=== PATIENT | male | born 1960 | race Caucasian/White ===

== ENCOUNTER 2017-08-19 22:46 | Emergency (ER) | payer OTHER ==
[~2017-08-19] VITALS: Ht 190.5 cm; Wt 72.7 kg
[~2017-08-19 22:46] MED LIST: ASPI325T5 PO; NO HOME MEDS; PERCOCET PO; VITA500046 PO
[2017-08-19 22:56] VITALS: BP 149/84
== END 2017-08-20 00:42 | disposition left against medical advice (07) ==
LOC: M ED 22:46 → EDBD 22:46 → M ED 08-20 00:42
DX: F10.129 Alcohol abuse with intoxication, unspecified (principal); Z53.21 Procedure and treatment not carried out due to patient leaving prior to being seen by health care provider

== ENCOUNTER 2017-12-14 11:35 | Emergency (ER) | payer OTHER ==
[2017-12-14] MEDS: NORCO, ANEXSIA 5/325MG TABLET (HYDROcodone/ACETAMINOPHEN) PO (12:46)
== END 2017-12-14 13:26 | disposition home or self-care (01) ==
LOC: M ED 11:35
DX: S86.111A Strain of other muscle(s) and tendon(s) of posterior muscle group at lower leg level, right leg, initial encounter (principal); S93.401A Sprain of unspecified ligament of right ankle, initial encounter; W17.2XXA Fall into hole, initial encounter; Y92.009 Unspecified place in unspecified non-institutional (private) residence as the place of occurrence of the external cause; E11.9 Type 2 diabetes mellitus without complications; Z98.890 Other specified postprocedural states
CPT/HCPCS: 73590

== ENCOUNTER 2017-12-21 01:25 | Emergency (ER) | payer OTHER ==
[2017-12-21] MEDS: KETOROLAC 60 MG/2 ML VIAL (J1885) IM (03:34)
[2017-12-21] MEDS: NORCO, ANEXSIA 5/325MG TABLET (HYDROcodone/ACETAMINOPHEN) PO (04:36)
== END 2017-12-21 04:54 | disposition home or self-care (01) ==
LOC: M ED 01:25
DX: M54.30 Sciatica, unspecified side (principal); F17.200 Nicotine dependence, unspecified, uncomplicated
CPT/HCPCS: J1885

== ENCOUNTER 2017-12-27 23:14 | Emergency (ER) | payer OTHER ==
[2017-12-28] MEDS: NORCO, ANEXSIA 5/325MG TABLET (HYDROcodone/ACETAMINOPHEN) PO (03:59)
== END 2017-12-28 04:06 | disposition home or self-care (01) ==
LOC: M ED 23:14
DX: M25.561 Pain in right knee (principal); W19.XXXA Unspecified fall, initial encounter; Y92.410 Unspecified street and highway as the place of occurrence of the external cause; E11.9 Type 2 diabetes mellitus without complications; F17.210 Nicotine dependence, cigarettes, uncomplicated; Z79.52 Long term (current) use of systemic steroids
CPT/HCPCS: 73564

== ENCOUNTER → 2018-02-24 | Outpatient (REF) | payer OTHER ==
[2018-02-24 14:31] LABS: ESTIMATED AVERAGE GLUCOSE 117 MG/DL (60-110); HEMOGLOBIN A1c 5.7 %
[2018-02-24 16:40] LABS: MALB URINE SIEMENS 36.7 MG/L; MAU/CREAT RATIO 16.3 MCG/MG (0.0-30.0)
== END ==
LOC: M SFHCPLAZ 11:40
DX: E11.65 Type 2 diabetes mellitus with hyperglycemia (principal)

== ENCOUNTER → 2024-11-03 | Outpatient (CLI) | payer MEDICARE, MEDICAID ==
[~2024-11-03] MED LIST changes: +ACET-683 PO; +IBUP80TA PO; +KETO10TAB PO; +OXYC1TAB23 PO; -PERCOCET PO; +PRED20TA PO
== END ==
LOC: M PLAIMG 10:55
PROVIDERS: ATTEND Nurse Practitioner
DX: S00.259A Superficial foreign body of unspecified eyelid and periocular area, initial encounter (principal); X58.XXXA Exposure to other specified factors, initial encounter; Y92.9 Unspecified place or not applicable

== ENCOUNTER 2025-07-02 17:14 | Emergency (ER) | payer MEDICARE, MEDICAID ==
[2025-07-02 17:44] LABS: BASO # 0.1 10^3/uL (0.0-0.2); BASO % 0.6 % (0.0-1.0); EOS # 0.2 10^3/uL (0.0-0.5); EOS % 2.0 % (0.0-3.0); LYMPH # 3.7 10^3/uL (1.5-5.0); LYMPH % 35.7 % (24.0-44.0); MONO # 0.5 10^3/uL (0.0-0.8); MONO % 5.2 % (2.0-8.0); NEUTROPHILS # 5.7 10^3/uL (1.5-8.5); NEUTROPHILS % 55.9 % (36.0-66.0); PLATELET COUNT, AUTOMATED 224 10^3/uL (150-450)
[2025-07-02 18:12] LABS: OSMOLALITY SERUM 308 MOSM/KG (280-301)
[2025-07-02 18:13] LABS: ALT/SGPT 17 U/L (7.0-40); AST/SGOT 13 U/L (<34); CALCIUM LEVEL 9.7 MG/DL (8.3-10.6); CARBON DIOXIDE LEVEL 24 MMOL/L (20-31); CHLORIDE LEVEL 103 MMOL/L (98-107); CREATININE FOR GFR 0.78 MG/DL (0.70-1.30); GLOMERULAR FILTRATION RATE > 90.0 (>49); POTASSIUM SERUM 3.4 MMOL/L (3.5-5.1); SODIUM LEVEL 140 MMOL/L (136-145)
[2025-07-02 18:16] LABS: ETHYL ALCOHOL (ETHANOL) 0.048 % (0.000-0.010)
[2025-07-02] MEDS ORDERED: HOLTER MONITOR XX (18:38)
[2025-07-02] MEDS ORDERED: OVERDOSE RESCUE KIT XX SCH (18:45)
[2025-07-02 18:48] LABS: FREE T4 0.93 NG/DL (0.89-1.76); MAGNESIUM LEVEL 1.8 MG/DL (1.8-2.4)
[2025-07-02] MEDS: POTASSIUM CHLORIDE 10MEQ SR TABLET PO ONE (19:35)
[2025-07-02] MEDS: NS 500 ML IV ONE (19:37)
[2025-07-02 22:00] VITALS: BP 162/76; TEMP 98.2; O2SAT 93
== END 2025-07-02 22:03 | disposition home or self-care (01) ==
LOC: M ED 17:14 → EDBD 17:14 → M ED 22:03
DX: R55 Syncope and collapse (principal); F10.10 Alcohol abuse, uncomplicated; F12.10 Cannabis abuse, uncomplicated; E03.9 Hypothyroidism, unspecified; I67.82 Cerebral ischemia; I44.0 Atrioventricular block, first degree; I45.10 Unspecified right bundle-branch block; I10 Essential (primary) hypertension; E78.5 Hyperlipidemia, unspecified; J45.909 Unspecified asthma, uncomplicated; F17.200 Nicotine dependence, unspecified, uncomplicated; G89.4 Chronic pain syndrome; Z79.899 Other long term (current) drug therapy; Z79.52 Long term (current) use of systemic steroids; Z86.73 Personal history of transient ischemic attack (TIA), and cerebral infarction without residual deficits